=== PATIENT | female | born 1975 | race Caucasian/White ===

== ENCOUNTER → 2017-10-03 11:58 | Outpatient (CLI) | payer BC, SELFPAY ==
[2017-10-03 13:14] LABS: Albumin, Serum 3.9 g/dL (3.2-5.0); Calcium,Total 8.2 mg/dL (8.5-10.1); Thyroid Stim Hormone (TSH) 1.64 uIU/mL (0.358-3.74)
[2017-10-04 08:42] LABS: PTHIN 69.8 pg/mL (18.4-80.1)
== END ==
PROVIDERS: Family Provider Student in an Organized Health Care Education/Training Program; PCP Student in an Organized Health Care Education/Training Program
DX: E89.0 Postprocedural hypothyroidism (principal); E83.51 Hypocalcemia; E55.9 Vitamin D deficiency, unspecified
CPT/HCPCS: 36415; 82040; 82310; 83970; 84443

== ENCOUNTER → 2017-12-07 08:21 | Outpatient (CLI) | payer BC, SELFPAY ==
[2017-12-07 09:21] LABS: Albumin, Serum 3.9 g/dL (3.2-5.0); Calcium,Total 8.6 mg/dL (8.5-10.1)
[2017-12-09 09:33] LABS: PTHIN 24.3 pg/mL (18.4-80.1)
== END ==
PROVIDERS: Family Provider Student in an Organized Health Care Education/Training Program; PCP Student in an Organized Health Care Education/Training Program
DX: C80.1 Malignant (primary) neoplasm, unspecified (principal); E83.51 Hypocalcemia
CPT/HCPCS: 36415; 82040; 82306; 82310; 83970

== ENCOUNTER → 2018-01-06 11:58 | Outpatient (CLI) | payer BC, SELFPAY ==
[2018-01-06 12:55] LABS: Ferritin 30 ng/mL (8-252)
[2018-01-10 20:08] LABS: Testosterone, % Free 2.27 % (0.50-2.80); Testosterone, Free 0.34 ng/dL (0.10-0.85); Testosterone, Total 15 ng/dL (8-48)
[2018-01-11 10:59] LABS: DHEA Sulfate 116.4 ug/dL (57.3-279.2)
== END ==
PROVIDERS: Family Provider Student in an Organized Health Care Education/Training Program; PCP Student in an Organized Health Care Education/Training Program; Visit Provider Dermatology Pediatric Dermatology
DX: L65.0 Telogen effluvium (principal); L82.1 Other seborrheic keratosis; L71.8 Other rosacea
CPT/HCPCS: 36415; 82627; 82728; 84402; 84403; 82626

== ENCOUNTER → 2019-08-21 15:04 | Outpatient (CLI) | payer BC, SELFPAY ==
[2019-08-21 17:29] LABS: Color, Urine Yellow (Yellow); Glucose, Dipstick Normal (Normal); Ketone-Dipstick 5 mg/dl (Negative); Leukocyte Esterase-Dipstick 500 /ul (Negative); Nitrite-Dipstick Negative (Negative); Occult Blood-Urine 25 /ul (Negative); Protein-Dipstick 15 mg/dl (Negative); Specific Gravity, Urine 1.025 (1.002-1.030); Urine Bilirubin Dipstick Negative (Negative); Urine Clarity Sl. Cloudy (Clear); Urine Urobilinogen Normal (Normal)
== END ==
PROVIDERS: Family Provider Student in an Organized Health Care Education/Training Program; PCP Student in an Organized Health Care Education/Training Program; Referring Provider Urology; Visit Provider Urology
DX: R30.0 Dysuria (principal)
CPT/HCPCS: 81002; 87086; 87088

== ENCOUNTER 2021-12-20 07:51 | Outpatient (CLI) | payer BC, SELFPAY ==
--- NOTE | 2021-12-20 07:55 | US_ITS ---
STUDY: ULTRASOUND BREAST - LEFT REASON FOR EXAM: Female, 46 years old. Follow-up left breast abscess TECHNIQUE: Axial and longitudinal images of the LEFT breast were performed with a high resolution ultrasound transducer. # OF IMAGES: 76 COMPARISON: None. FINDINGS: LEFT Breast: Heterogeneous background echotexture. At 1 o''clock, 3 cm from nipple, ultrasound confirms a 1.5 cm thick walled anechoic mass with posterior enhancement worrisome for a small abscess. At 12 o''clock, 4 cm from nipple, ultrasound confirms a 1.4 cm thick-walled anechoic mass with posterior enhancement also worrisome for abscess. At 12 o''clock, 4 cm from nipple, ultrasound confirms a 0.7 cm oval parallel circumscribed anechoic mass consistent with a cyst. At 1 o''clock, 4 cm from nipple, ultrasound confirms a 0.8 cm oval parallel circumscribed anechoic mass consistent with a cyst.: US/Breast Complete Unilateral IMPRESSION: 2 thick-walled cystic lesions within the superior left breast worrisome for abscesses. ASSESSMENT CATEGORY: BIRADS Category 2: Benign. A letter regarding these results will be sent to the patient by the facility within 30 days. Electronically Signed: Tank Cabrales MD at 9:57 EDT ,
== END 2021-12-20 23:59 | disposition home or self-care (01) ==
PROVIDERS: PCP Student in an Organized Health Care Education/Training Program; Visit Provider Physician Assistant
DX: N61.1 Abscess of the breast and nipple (principal)
CPT/HCPCS: 76641

== ENCOUNTER → 2022-01-12 | Outpatient (CLI) | payer BC, SELFPAY ==
--- NOTE | 2022-01-12 13:06 | BI_ITS ---
MAMMOGRAPHY - UNILATERAL DIAGNOSTIC: LEFT BREAST REASON FOR EXAM: Female, 46 years old. History of left breast abscesses. PERTINENT HISTORY: Non-contributory. TECHNIQUE: Digital unilateral breast itz (3D mammographic acquisition) in the CC and MLO projections. 2-D mediolateral oblique (MLO) and craniocaudad (CC) views of both breasts were obtained. CAD: Full Field Digital Mammography with Computer Added Detection was performed. COMPARISON: Comparison is made with prior chest examination 06/15/2021. FINDINGS: Breast Composition: The breasts are extremely dense, which lowers the sensitivity of mammography. There are no dominant masses or suspicious calcifications. A tissue clip marker is once again seen in the deep upper slightly lateral aspect of the left breast. No other significant abnormalities are identified. There has been no significant change since the prior study. BI/DIAG MAMM W/CAD, UNILAT IMPRESSION: Stable unilateral diagnostic mammogram. One year follow-up mammogram recommended. (A) ASSESSMENT CATEGORY: BIRADS Category 2: Benign. A letter regarding these results will be sent to the patient by the facility within 30 days. Approximately 10% of breast cancers are not detected by mammography. A normal mammogram should not delay biopsy of a clinically suspicious abnormality. Electronically Signed: Elie Daniels MD at 14:47 EDT ,
--- NOTE | 2022-01-12 13:48 | US_ITS ---
STUDY: ULTRASOUND BREAST - LEFT REASON FOR EXAM: Female, 46 years old. History of multiple left breast cysts. TECHNIQUE: Axial and longitudinal images of the LEFT breast were performed with a high resolution ultrasound transducer. # OF IMAGES: 25 COMPARISON: Comparison is made with prior study dated 12/20/2021. FINDINGS: LEFT Breast: The previously seen 4 cystic and hypoechoic nodules in the right left breast are unchanged. New findings are seen on today''s examination. There is a 1.1 cm x 1 cm x 0.5 cm cyst in the retroareolar region. A similar-appearing cyst is seen adjacent measuring 6 mm x 7 mm x 5 mm. At the 2 o''clock position of the breast, there is a 9 mm x 8 mm x 8 mm hypoechoic nodule with posterior acoustical enhancement. This may represent a complicated cyst. US/Breast Limited Unilateral IMPRESSION: There are 3 cystic structures seen in the retroareolar region which were not seen on prior study. The remainder of examination is unchanged. ASSESSMENT CATEGORY: BIRADS Category 2: Benign. A letter regarding these results will be sent to the patient by the facility within 30 days. Electronically Signed: Elie Daniels MD at 14:55 EDT ,
== END | disposition home or self-care (01) ==
LOC: OPUS 13:05
PROVIDERS: PCP Student in an Organized Health Care Education/Training Program; Visit Provider Surgery
DX: R92.8 Other abnormal and inconclusive findings on diagnostic imaging of breast (principal)
CPT/HCPCS: 76642; 77061; 77065; G0279

== ENCOUNTER → 2023-04-13 | Outpatient (CLI) | payer BC, SELFPAY ==
[2023-04-13 09:35] LABS: Absolute Lymphocyte Count 2.72 X10^3/uL (0.83-4.51); Absolute Neutrophil Count 4.7 X10^3/uL (2.0-7.7); Basophil# 0.08 X10^3/uL; Eosinophil# 0.13 X10^3/uL; Eosinophils% 1.6 % (0-5); Hemoglobin 13.2 g/dL (12.0-15.0); Lymphocyte # 2.72 X10^3/ul (0.83-4.51); Lymphocyte % 33.3 % (19-41); Mean Corpuscular Volume 90.9 fL (81-99); Mean Platelet Vol. 9.4 fl (6.2-12.0); Monocyte% 6.1 % (0-10); NRBC Flagged by Analyzer 0 % (0-5); Neutrophil % 57.5 % (47-70); Platelet Count 321 K/mm3 (150-450); RBC Distribution Width CV 12.7 % (11.6-14.6); RBC Distribution Width SD 41.4 fl (35.1-43.9); White Blood Count 8.2 K/mm3 (4.4-11.0)
== END | disposition home or self-care (01) ==
LOC: LAB 08:33
PROVIDERS: PCP Student in an Organized Health Care Education/Training Program; Referring Provider Obstetrics & Gynecology; Visit Provider Obstetrics & Gynecology
DX: Z01.818 Encounter for other preprocedural examination (principal)
CPT/HCPCS: 36415; 85025

== ENCOUNTER 2023-04-18 08:05 | Day surgery (SDC) | payer BC, SELFPAY ==
--- NOTE | 2023-04-11 12:56 | PCM.HP.BLA ---
History and Physical Date of Admission: 04/18/23 HPI: The patient is a 47 year old female presenting for pre-operative visit. She is scheduled for Hysteroscopy D&C, possible polyp resection and endometrial ablation for menorrhagia on 04/18/23. Procedure discussed along with risks, benefits and complications. Other alternatives discussed for management. Consent form signed? Yes. ? ? PAST MEDICAL HISTORY PAST MEDICAL HISTORY Diagnosis Date ? Allergic rhinitis, cause unspecified ? ? Allergic rhinitis ? Hypercholesteremia ? ? Interstitial cystitis ? ? Tachycardia, unspecified ? ? Urinary complications ? ? hx of kidney and uti infections age 9yr to 19yr ? ? PAST SURGICAL HISTORY PAST SURGICAL HISTORY Procedure Laterality Date ? IUD INSERTION ([employer])_*[place] ? 04/22/2009 ? Mirena, removed 04/2014 ? PAST SURGICAL HISTORY OF ? ? ? urethral dilatation x2 ? PAST SURGICAL HISTORY OF Left 08/21/2017 ? stereotactic needle core biopsy left breast; Dr. Britney Oleary ? THYROIDECTOMY TOTAL/COMPLETE ? 07/09/2017 ? TONSILLECTOMY PRIMARY/SECONDARY <AGE 11 ? ? ? Tonsillectomy ? US FNA BREAST Left ? CURRENT MEDICATIONS Current Outpatient Medications Medication Sig Dispense Refill ? SYNTHROID 88 mcg tablet BRAND SYNTHROID, Take on empty stomach. Take 1 tablet 5 days a week and 2 tablets 2 days a week by mouth 114 tablet 3 ? LORazepam (ATIVAN) 0.5 mg take 1/2 to 1 tablet by mouth three times a day if needed for anxiety for up to 7 days ? ? ? metoprolol tartrate, short acting, (LOPRESSOR) 25 mg tablet Take 1 tablet by mouth once daily as needed (palpitations, heart racing). 15 tablet 2 ? ascorbic acid/collagen hydr (ASCORBIC ACID-COLLAGEN ORAL) Take 1 tablet by mouth once daily. ? cholecalciferol (VITAMIN D3) 1,000 unit tab tablet Take 1 tablet by mouth once daily. ? Lactobac no.41-Bifidobact no.7 70 mg (3 billion cell) cap Take 1 capsule by mouth once daily. ? ? ? No current facility-administered medications for this visit. ? ? ALLERGIES: Penicillins ? PERSONAL HISTORY: SOCIAL HISTORY Social History ? Tobacco Use ? Smoking status: Never ? Smokeless tobacco: Never Vaping Use ? Vaping Use: Never used Substance Use Topics ? Alcohol use: Yes ? ? Comment: Seldom ? Drug use: No ? FAMILY HISTORY: FAMILY HISTORY FAMILY HISTORY Problem Relation Age of Onset ? Diabetes Mother ? ? Hypertension Mother ? ? Heart Mother ? ? Kidney Disease Mother ? ? kidney faliure ? Heart Maternal Grandmother ? ? Diabetes Maternal Grandmother ? ? Hypertension Maternal Grandmother ? ? Arthritis Maternal Grandmother ? ? Heart Maternal Grandfather ? ? Alzheimer's Disease Maternal Grandfather ? ? ? REVIEW OF SYMPTOMS: GENERAL: denies fevers or chills ENDOCRINOLOGY: has not been on steroids Cardiology : denies palpitations or chest pain Respiratory: denies SOB or cough Hematology: denies history of prolonged bleeding or easy bruising or VTE Allergy: Denies history of personal or family history of allergy to anesthesia ? PHYSICAL EXAMINATION: ? VITALS: Last menstrual period 02/15/2023. ? GENERAL: The patient is well nourished, well hydrated in no acute distress. , The patient is oriented to time, place, and person. NECK: Supple. No lynphadenopathy, normal thyroid, no thyromegaly. LUNGS: Clear to auscultation bilaterally. no wheezes, rhonchi or rales HEART: Regular rate and rhythm, Normal heart sounds, and No murmurs or gallops ? ? Pelvic US 01/29/23 Impression A anteverted uterus seen that measures 99 mm x 47 mm x 54 mm. The myometrium is heterogeneous, and the endometrial-myometrial junction is not well defined and no obvious fibroids are observed. This finding is suggestive of adenomyosis. The central endometrium complex measures 8.8 mm in combined thickness. No abnormal ?blood flow to suggest a polyp or focal endometrial pathology is observed within the endometrial complex. The contour of the endometrial cavity was normal on 3-D imaging. There are two possible endocervical polyps noted. Both ovaries are visualized and appear normal. No adnexal masses were observed. There is no free fluid visualized in the peritoneal cavity. ? ? EMB 01/29/23: FINAL DIAGNOSIS Endometrium, biopsy: -Proliferative endometrium with focal gland crowding; see comment. ? ? IMPRESSION: Menorrhagia ? PLAN: The risks/benefits/alternatives and personal involved for the planned Hysteroscopy D&C with possible polyp resection and endometrial ablation were reviewed with the patient. Her questions were answered to her satisfaction and she desires to proceed. Consent was signed. I reviewed with her postop instructions and expectations. ? ? I have reviewed and updated past medical and surgical history, medications and allergies This H&P was completed in my office on 04/10/2023 Assessment & Plan Assessment/Plan (1) Menorrhagia: (2) Endocervical polyp:
[2023-04-18] VITALS (7 sets, daily range): BP systolic 101–120; BP diastolic 58–81; PULSE 78–87; RESP 16–18; TEMP 36.4–36.9; O2SAT 80–97; BMI 34.4
--- NOTE | 2023-04-18 | EMB_PTH ---
PATIENT: JOE AZUL LOC: [facility] [place] U[place][id number] AGE/SX: 47/F ROOM: RE04/18/[address]: Dr. Aliza Choi MD : 1975 BED: DIS: 04/18/2023 SPEC #: [id number] RECD: 04/18/23 14:08 STATUS: JEFFREY CHRISTIANO #: [id number] RUMA: 04/18/23 00:[address]: Aliza Choi DEPT: SURGICAL PATHOLOGY RECD BY: Karan Elise ENTERED: 04/19/23 08:00 SP TYPE: ENDOM BX/C LON DR: Dr. Cruz Rios, DO Tissues: Endometrium, NOS Procedures: Surgery Specimen Level IV HEADER OPERATION: Hysteroscopy, D & C Umm, endometrial ablation PRE-OP DIAGNOSIS: Menorrhagia, endocervical polyp TISSUE SUBMITTED: Endometrial and endocervical curettings MICROSCOPIC DIAGNOSIS Endometrium and endocervix, curettings: Secretory endometrium. Rare fragments of benign superficial endocervix. AM:shayna 04/22/2023 MICROSCOPIC DESCRIPTION Slides are reviewed. GROSS DESCRIPTION Received in fixative is one container labeled with the patient's name and designated endometrial and endocervical curettings. The specimen consists of multiple irregular fragments of light tierney soft tissue that in aggregate measure 3.0 x 2.5 x 0.2 cm. The specimen is totally submitted in one cassette. / AM:shayna 04/19/2023 TC:5 CPT: 82171
[2023-04-18 08:34] LABS: Internal QC Validated? YES +Cl - CLEAR BKGD
[2023-04-18 08:36] LABS: Pregnancy, Urine Negative Negative
[2023-04-18] MEDS: Lactated Ringers 1,000 ML 15 ML IV (08:41)
[2023-04-18] MEDS: Acetaminophen 500 MG Tablet 1000 MG PO (08:42)
[2023-04-18] MEDS: Ketorolac 30 MG/ML Syringe IV (08:43)
--- NOTE | 2023-04-18 11:32 | DCINST_ITS ---
Discharge Instructions Diet Discharge Diet: No restrictions Activity May resume sexual activity in: 2 weeks Lifting Restrictions: none Dressing / Incision Call your doctor if your incision/area has: Sudden Increased Bleeding and Foul Smelling Discharge Call your doctor if you observe: Fever of 101 or Higher and Using more than 1 pad per hour (for 2 hrs in a row) Follow Up Care Please Follow Up With: Aliza Choi MD When: You do not need to stop appointment unless you are having questions or concerns. Call [phone] to make an appointment or with any concerns or send a [facility] message. Test Results: Test results from this visit will be discussed in further detail at your follow- up appointment, if applicable. Discharge Plan Admission Primary Reason for Your Visit: D&C with endometrial ablation Attending Provider: Aliza Choi Primary Care Provider: Cruz Rios Discharge Orders/Prescriptions Prescriptions: No Action metoprolol tartrate 25 mg tablet 25 mg PO PRN Adult 50 Plus Probiotic 4 billion cell capsule 4,000 mmu cells PO DAILY cholecalciferol (vitamin D3) 125 mcg (5,000 unit) capsule 125 mcg PO DAILY levothyroxine [Euthyrox] 88 mcg tablet 88 mcg PO DAILY vitamin B complex Capsule 1 cap PO DAILY Referrals / Follow Up: Cruz Rios DO [Primary Care Provider] - Disposition Disposition (needs filled in before D/C Order can be placed): Home, Self Care
--- NOTE | 2023-04-18 11:33 | PCM.OPRPT ---
Problems Associated Problem List Diagnoses (1) Endocervical polyp: (2) Menorrhagia: Report of Operation Date of Procedure: 04/18/23 Pre-Operative Diagnosis: menorrhagia, endocervical polyp Post-Operative Diagnosis: same Surgery/Procedure Performed:: Hysteroscopy D&C with endocervical polyp resection and Umm endometrial Description of Surgical Findings:: lush endometrium, small endocervical polyp appearihng lesion, normal cervix and vagina Surgeon: Aliza Choi residency program coordinator: None Type of Anesthesia: MAC/Supplemental/Local Anesthesiologist: Shelley Latif Special Medications: none Specimen's removed: endometrial and endocervical currettings Drains: none Estimated Blood Loss (mL): 10 Fluids Replaced: 1000 Description of Procedure: The patient was taken to the OR where she was prepped and draped in dorsal lithotomy position. The weighted speculum was placed in the vagina and the anterior lip of the cervix was grasped with a single-tooth tenaculum. A paracervical block was administered with [1% lidocaine with 1-100,000 epinephrine solution]. The cervix was dilated serially with Hegar dilators. The Symfi on hysteroscope was placed into the uterine cavity and the above findings were noted. Bilateral tubal ostia [were] identified. The uterus sounded to 10cm and the cervical length was [4]cm. The endometrial cavity length was 6cm. The hysteroscope was removed. [A gentle sharp curettage was done of the uterine cavity and the endocervical canal. The polypoid appearing lesion from the endocervix was removed. The specimen was handed off and sent to pathology.] The Umm device was set to 6cm. The instrument was then seated into the endometrial cavity and the indicator was in the green. The cervical seal balloon was inflated and the uterine integrity test was passed. The ablation procedure was initiated and the patient coughed really hard and after 3 seconds the device turned off. We got a 002 air code. We remove the instrument from the patient and removed the plug from the device. We reinserted it and ran through the safety test again. The device was seated back into the patient and the seal created. The procedure then ran through 28 seconds when the patient coughed very hard again in the device aired. It was determined that the procedure was adequate and the device was removed. Another quick hysteroscopy was performed to ensure that the uterus was intact and it was. Charred endometrium was noted. The tenaculum was removed and the tenaculum site was noted to be hemostatic. All sponge and needle counts were correct. A vaginal sweep was performed by me. The patient was awakened and taken to the recovery room in stable condition. Hysteroscopic fluid deficit is calculated to be 50 cc of normal saline Grafts/Implants Used: none Procedure Start Time: 11:40 Procedure Stop Time: 11:54 Complications none Admit VTE Documentation VTE Present on Admission: No VTE Mechan Device Prophylaxis: SCD's VTE Pharm Prophylaxis ordered?: No Reason prophylaxis not ordered:: Procedure Not Indicated
[2023-04-18] MEDS: Lidocaine 1% /Epi 1:100 (20ml) 20 ML Vial (11:42)
== END 2023-04-18 12:55 | disposition home or self-care (01) ==
LOC: SDC 08:12 → AC 08:12
PROVIDERS: PCP Student in an Organized Health Care Education/Training Program; Referring Provider Obstetrics & Gynecology; Visit Provider Obstetrics & Gynecology
PROC: 0UB98ZZ Excision of Uterus, Via Natural or Artificial Opening Endoscopic (ICD-10-PCS; CPT 58558; principal; 2023-04-18 09:35)
DX: N92.0 Excessive and frequent menstruation with regular cycle (principal); N84.1 Polyp of cervix uteri; F41.9 Anxiety disorder, unspecified; Z79.899 Other long term (current) drug therapy
CPT/HCPCS: 58558; 00952; 81025; 88305; J7120; J2405